=== PATIENT | female | born 1980 | race Asian ===

== ENCOUNTER 2017-09-14 00:02 | Emergency (ER) | payer MEDICAID ==
[~2017-09-14] VITALS: Ht 160 cm; Wt 63.5 kg
[2017-09-14 00:14] VITALS: BP 123/87
[2017-09-14] MEDS ORDERED: PREDNISONE10 MG ORAL (00:16)
[2017-09-14] MEDS ORDERED: PYRIDOSTIGMINE60 MG ORAL (00:16)
[2017-09-14] MEDS ORDERED: ADVIL CHIL100 MG/5 M ORAL (00:33)
[2017-09-14 00:55] VITALS: BP 127/81
--- NOTE | 2017-09-14 04:02 | Emergency Room Report ---
History of Present Illness General Chief Complaint: Earache Source: Patient Present Illness HPI This is a 36-year-old female presented after increased earache. Patient prior history of myasthenia gravis. Patient stated that she had been having increased bilateral earache. She reports having recently been seen and treated at outside emergency department and was given IV antibiotics. The patient reported having some difficulty with swallowing and exacerbations of her myasthenia she had been able to take her medications. She had not been vomiting or having diarrhea. She denied difficulty breathing this time. Allergies: Uncoded Allergies: ANTIBIOTIC PILLS (Adverse Reaction, Unknown, vomiting, 09/14/17) Patient History Past Medical History: see triage record Last Menstrual Period: now Now: No Reviewed Nursing Documentation: PMH: Agreed, PSxH: Agreed Nursing Documentation-PMH Past Medical History: No History, Except For Review of Systems All Other Systems: negative except mentioned in HPI Physical Exam Vital Signs Date Time Temp Pulse Resp B/P (MAP) Pulse Ox O2 Delivery O2 Flow Rate FiO2 09/14/17 00:08 97.9 100 16 123/87 99 Room Air General Appearance: well appearing, no apparent distress, alert, GCS 15, non- toxic Head: normocephalic, atraumatic ENT: hearing grossly normal, normal voice Neck: full range of motion, supple Respiratory: normal inspection, no respiratory distress, speaking full sentences, other - adequate respiratory effort Cardiovascular #1: normal inspection, regular rate, rhythm, no edema, no gallop Gastrointestinal: normal inspection, normal bowel sounds, non tender, soft Musculoskeletal: normal inspection, back normal, digits/nails normal, no calf tenderness Neurologic: normal inspection, alert, oriented x3, responsive, superintendent warehouse III-XII nml as tested, normal gait Psychiatric: mood/affect normal Skin: no rash Medical Decision Making Diagnostic Impression: Primary Impression: Otalgia of both ears ER Course Patient presented for ear pain. Differential diagnosis included was not limited to otitis media, malignant otitis externa, foreign body, cellulitis, mastoiditis, carotid dissection, myocardial infarction among others. Patient' s benign exam and does not appear to require any further imaging or laboratory testing at this time. Patient appears have some retraction of the left TM which does not appeared infected. Last Vital Signs Date Time Temp Pulse Resp B/P (MAP) Pulse Ox O2 Delivery O2 Flow Rate FiO2 09/14/17 00:55 97.9 95 18 127/81 97 Room Air Status: improved Disposition: HOME, SELF-CARE Condition: Improved Scripts Ibuprofen (Advil Children's) 100 Mg/5 Ml Oral.susp 400 MG ORAL Q6H, #120 ML Prov: Bull Montero 09/14/17 Referrals: [facility]ERR[facility] (PCP) Patient Instructions: Bull Martinez Sep 14, 2017 04:02
== END 2017-09-14 00:55 | disposition home or self-care (01) ==
LOC: EMR 00:36
DX: H92.03 Otalgia, bilateral (principal)
CPT/HCPCS: 99283